=== PATIENT | male | born 1945 | race Hispanic/Latino ===

== ENCOUNTER 2016-10-25 07:22 | Inpatient (IN) | payer MEDICARE ==
[2016-10-25] MEDS ORDERED: D50W (25GM) IV ONE ×3 (07:30→07:46)
[2016-10-25 07:52] LABS: Basophils % (Auto) 0.2 % (0.0-1.8); Hematocrit 43.5 % (35.5-45.6); Hemoglobin 14.4 gm/dl (11.8-15.2); Mean Corpuscular HGB Conc 33 % (32-34); Mean Corpuscular Hemoglobin 30 pg (28-32); Mean Corpuscular Volume 90 fl (84-94); Platelet Count 186 K/mm3 (140-440); Red Blood Count 4.81 M/mm3 (3.65-5.03); Red Cell Distribution Width 13.9 % (13.2-15.2); White Blood Count 14.3 K/mm3 (4.5-11.0)
--- NOTE | 2016-10-25 08:04 | Emergency Department Report ---
ED Neuro Deficit HPI - General Chief Complaint: Neuro Symptoms/Deficit Stated Complaint: POSS STROKE Time Seen by Provider: 10/25/16 07:59 Source: patient, family Mode of arrival: Wheelchair Limitations: No Limitations - History of Present Illness Initial Comments: Pt is a 71-year-old male with history of hypertension, diabetes, hyperlipidemia who presents with dysarthric speech and weakness. Patient and reports he has been feeling very weak and was seen by [facility] yesterday and was discharged with Cipro for a UTI. Patient's reports that he still has weakness, slow to respond, his thought process is delayed, difficulty walking but then presented with dysarthric speech this morning at 5 AM last known normal is unknown. Patient does take glipizide daily, last meal was yesterday. Unknown if patient took medications this morning. - Related Data Home Medications: Home Medications Medication Instructions Recorded Confirmed Last Taken AtorvaSTATin [Lipitor] 10 mg PO DAILY 10/25/16 10/25/16 Unknown Ciprofloxacin HCl [Ciprofloxacin 500 mg PO Q12HR 10/25/16 10/25/16 Unknown TAB] Lisinopril [Zestril] 5 mg PO QDAY 10/25/16 10/25/16 Unknown Metformin HCl [Glucophage] 1,000 mg PO BID 10/25/16 10/25/16 Unknown glipiZIDE [Glucotrol] 10 mg PO BID 10/25/16 10/25/16 Unknown Allergies/Adverse Reactions: Allergies Allergy/AdvReac Type Severity Reaction Status Date / Time No Known Allergies Allergy Verified 10/25/16 07:54 ED Review of Systems ROS: Stated complaint: POSS STROKE Other details as noted in HPI Comment: All other systems reviewed and negative ED Past Medical Hx - Past Medical History Previous Medical History?: Yes Hx Hypertension: Yes Hx Diabetes: Yes Additional medical history: UTI, HLD - Surgical History Past Surgical History?: Yes Hx Coronary Stent: No - Social History Smoking Status: Never Smoker Substance Use Type: None - Medications Home Medications: Home Medications Medication Instructions Recorded Confirmed Last Taken Type AtorvaSTATin [Lipitor] 10 mg PO DAILY 10/25/16 10/25/16 Unknown History Ciprofloxacin HCl [Ciprofloxacin 500 mg PO Q12HR 10/25/16 10/25/16 Unknown History TAB] Lisinopril [Zestril] 5 mg PO QDAY 10/25/16 10/25/16 Unknown History Metformin HCl [Glucophage] 1,000 mg PO BID 10/25/16 10/25/16 Unknown History glipiZIDE [Glucotrol] 10 mg PO BID 10/25/16 10/25/16 Unknown History ED Neuro Physical Exam - General Limitations: No Limitations General appearance: alert, in no apparent distress Suspected Stroke: Yes (patient could have be having a posterior CVA or small stroke not detectable on CT) - Head Head exam: Present: atraumatic, normocephalic - Eye Eye exam: Present: normal appearance - ENT ENT exam: Present: mucous membranes moist - Neck Neck exam: Present: normal inspection - Respiratory Respiratory exam: Present: normal lung sounds bilaterally. Absent: respiratory distress - Cardiovascular Cardiovascular Exam: Present: regular rate, normal rhythm. Absent: systolic murmur, diastolic murmur, rubs, gallop - GI/Abdominal GI/Abdominal exam: Present: soft, normal bowel sounds - Rectal Rectal exam: Present: deferred - Extremities Exam Extremities exam: Present: normal inspection - Back Exam Back exam: Present: normal inspection - Neurological Exam Neurological exam: Present: alert, oriented X3, CN II-XII intact, abnormal gait , other (Dysarthric speech) - NIHSS Assessment Interval: 7-10 Days 1a. Level of Consciousness: alert 1b. LOC Questions: answers correctly 1c. LOC Commands: performs tasks correctly 2. Best Gaze: normal 3. Visual: no visual loss 4. Facial Palsy: normal symmetrical movement 5b. Motor Arm Right: no drift 5a. Motor Arm Left: no drift 6a. Motor Leg Left: no drift 6b. Motor Leg Right: no drift 7. Limb Ataxia: present 1 limb 8. Sensory: normal 9. Best Language: no aphasia 10. Dysarthria: mild/moderate dysarthria 11. Extinction/Inattention: no abnormality Total Score: 2 Stroke Severity: Minor Stroke - Psychiatric Psychiatric exam: Present: normal mood, flat affect - Skin Skin exam: Present: warm, dry, intact, normal color. Absent: rash ED Course Vital Signs 10/25/16 10/25/16 07:32 08:00 Pulse Rate 62 106 H Respiratory 18 18 Rate Blood Pressure 103/67 O2 Sat by Pulse 100 Oximetry - Lab Data Result diagrams: 10/25/16 07:45 10/25/16 07:45 Lab Results 10/25/16 10/25/1617 Range/Units 07:42 07:45 07:45 WBC 14.3 H (4.5-11.0) K/mm3 RBC 4.81 (3.65-5.03) M/mm3 Hgb 14.4 (11.8-15.2) gm/dl Hct 43.5 (35.5-45.6) % MCV 90 (84-94) fl MCH 30 (28-32) pg MCHC 33 (32-34) % RDW 13.9 (13.2-15.2) % Plt Count 186 (140-440) K/mm3 Lymph % (Auto) 9.8 L (13.4-35.0) % Bath % (Auto) 11.4 H (0.0-7.3) % Eos % (Auto) 0.0 (0.0-4.3) % Baso % (Auto) 0.2 (0.0-1.8) % Lymph # 1.4 (1.2-5.4) K/mm3 Bath # 1.6 H (0.0-0.8) K/mm3 Eos # 0.0 (0.0-0.4) K/mm3 Baso # 0.0 (0.0-0.1) K/mm3 Seg Neutrophils % 78.6 H (40.0-70.0) % Seg Neutrophils # 11.2 H (1.8-7.7) K/mm3 PT 13.3 (12.2-14.9) Sec. INR 1.02 (0.87-1.13) APTT 26.0 (24.2-36.6) Sec. Thrombin Time (15.1-19.6) Sec. Sodium (137-145) mmol/L Potassium (3.6-5.0) mmol/L Chloride (98-107) mmol/L Carbon Dioxide (22-30) mmol/L Anion Gap mmol/L BUN (9-20) mg/dL Creatinine (0.8-1.5) mg/dL Estimated GFR ml/min BUN/Creatinine Ratio % Glucose (75-100) mg/dL POC Glucose < 40 L (70-105) Calcium (8.4-10.2) mg/dL Troponin T (0.00-0.029) ng/mL 10/25/16 10/25/16 10/25/16 Range/Units 07:45 07:45 07:58 WBC (4.5-11.0) K/mm3 RBC (3.65-5.03) M/mm3 Hgb (11.8-15.2) gm/dl Hct (35.5-45.6) % MCV (84-94) fl MCH (28-32) pg MCHC (32-34) % RDW (13.2-15.2) % Plt Count (140-440) K/mm3 Lymph % (Auto) (13.4-35.0) % Bath % (Auto) (0.0-7.3) % Eos % (Auto) (0.0-4.3) % Baso % (Auto) (0.0-1.8) % Lymph # (1.2-5.4) K/mm3 Bath # (0.0-0.8) K/mm3 Eos # (0.0-0.4) K/mm3 Baso # (0.0-0.1) K/mm3 Seg Neutrophils % (40.0-70.0) % Seg Neutrophils # (1.8-7.7) K/mm3 PT (12.2-14.9) Sec. INR (0.87-1.13) APTT (24.2-36.6) Sec. Thrombin Time 16.0 (15.1-19.6) Sec. Sodium 135 L (137-145) mmol/L Potassium 3.7 (3.6-5.0) mmol/L Chloride 97.7 L (98-107) mmol/L Carbon Dioxide 22 (22-30) mmol/L Anion Gap 19 mmol/L BUN 30 H (9-20) mg/dL Creatinine 1.1 (0.8-1.5) mg/dL Estimated GFR > 60 ml/min BUN/Creatinine Ratio 27.27 % Glucose 46 L (75-100) mg/dL POC Glucose 158 H (70-105) Calcium 8.7 (8.4-10.2) mg/dL Troponin T < 0.010 (0.00-0.029) ng/mL - EKG Data -: EKG Interpreted by Ak ([id number] Afib at 101) EKG shows normal: axis (RAD), intervals (QTc:484ms), QRS complexes (no LVH), ST- T waves ((-)ST changes, TWI in III, avF) Rate: tachycardia (101 bpm) When compared to previous EKG there are: previous EKG unavailable - Radiology Data Radiology results: report reviewed 825: Case d/w radiology, no acute findings on CT head non con, will order CTA head and neck CTA head and neck: pending, hospitalist aware these were ordered and pending final reads Critical care attestation.: If time is entered above; I have spent that time in minutes in the direct care of this critically ill patient, excluding procedure time. ED Disposition Clinical Impression: Dysarthria, Weakness of both lower limbs, Gait abnormality Disposition: OP ADMITTED IP TO THIS HOSP Is pt being admited?: Yes Condition: Stable
[2016-10-25 08:05] LABS: Anion Gap 19 mmol/L; BUN/Creatinine Ratio 27.27; Blood Urea Nitrogen 30 mg/dL (9-20); Calcium 8.7 mg/dL (8.4-10.2); Carbon Dioxide 22 mmol/L (22-30); Chloride 97.7 mmol/L (98-107); Glucose 46 mg/dL (75-100); INR 1.02 (0.87-1.13); Potassium 3.7 mmol/L (3.6-5.0); Sodium 135 mmol/L (137-145)
--- NOTE | 2016-10-25 08:27 | Cat Scan Report ---
FINAL REPORT PROCEDURE: CT HEAD/BRAIN WO CON TECHNIQUE: Computerized tomography of the head was performed without contrast material. HISTORY: neuro deficits \T\lt; 6hrs or sx present upon awakening. Stroke alert COMPARISON: No prior studies are available for comparison. FINDINGS: Skull and scalp: Normal. Paranasal sinuses: Moderate fluid left mastoid. Hypoplastic right frontal sinus Ventricles and subarachnoid spaces: Normal. Suspect chronic arachnoid cyst left anterior inferior middle cranial fossa measuring 4.0 x 2.5 centimeters Cerebrum: No evidence of hemorrhage, acute infarction or mass . Cerebellum and brainstem: No evidence of hemorrhage, acute infarction or mass. Vasculature: Intracranial arterial atherosclerosis with moderately dense distal basilar artery axial image number 9. Moderately heavy calcified atherosclerosis of the distal internal carotid arteries bilaterally. Right MCA larger caliber than left MCA and mildly more dense or atherosclerotic. No classic hyperdense MCA sign seen at this time. Comments: Mild diffuse atrophy with parafalcine calcifications. Minimal central lacunar infarct disease. Periventricular microischemic change evident.. IMPRESSION: No evidence of acute ischemic change seen at this time by CT technique If symptoms and or concern persist consider MRI Report called by ASHOK Millard 8:[address] Abdalla 10/25/16 Final signed report completed within 8 minutes of receipt
[2016-10-25] MEDS ORDERED: NACL 0.9% 1000 ML 1,000 ML ONE (08:45)
[2016-10-25] MEDS ORDERED: NACL ONE (08:48)
[2016-10-25] MEDS ORDERED: NACL 0.9% 1000 ML 1,000 ML IV ONE (08:52)
--- NOTE | 2016-10-25 11:18 | History and Physical Report ---
History of Present Illness Date of examination: 10/25/16 Date of admission: 10/25/16 Chief complaint: Altered Mental status Slurred Speech Difficulty walking History of present illness: patient is 71-year-old male presented to the ER from home with complaint of altered mental status, and slurred speech. Patient's glucose was 46 upon arrival. Patient has a history of hypertension, diabetes, hyperlipidemia , . Patient also reported, he was diagnosed with UTI, by [facility] 3 days ago and being treated with Cipro by month. In Emergency Department, blood glucose was 46. He was given 1 amp of D50. His speech improved dramatically but his said he is not quite back to normal but close to normal. In addition and EKG showed atrial fibrillation, new onset with controlled ventricular rate 80s to 90s. He denies any previous history of atrial fibrillation. He is being admitted for further management . Past History Past Medical History: diabetes, hypertension, hyperlipidemia Past Surgical History: hernia repair, Other (circumcision and dilation 1 month ago) Social history: , lives with family, smoking (quit 2 years ago), full code. denies: alcohol abuse, IV drug use Family history: cancer, hypertension Medications and Allergies Allergies Allergy/AdvReac Type Severity Reaction Status Date / Time No Known Allergies Allergy Verified 10/25/16 07:54 Home Medications Medication Instructions Recorded Confirmed Last Taken Type AtorvaSTATin [Lipitor] 10 mg PO DAILY 10/25/16 10/25/16 Unknown History Ciprofloxacin HCl [Ciprofloxacin 500 mg PO Q12HR 10/25/16 10/25/16 Unknown History TAB] Lisinopril [Zestril] 5 mg PO QDAY 10/25/16 10/25/16 Unknown History Metformin HCl [Glucophage] 1,000 mg PO BID 10/25/16 10/25/16 Unknown History glipiZIDE [Glucotrol] 10 mg PO BID 10/25/16 10/25/16 Unknown History Review of Systems Constitutional: no weight loss, no weight gain, no fever, no chills Ears, nose, mouth and throat: deferred Cardiovascular: no chest pain, no syncope Respiratory: no cough, no congestion Gastrointestinal: diarrhea, no abdominal pain, no nausea, no vomiting, no constipation Genitourinary Male: no dysuria Rectal: pain Musculoskeletal: gait dysfunction, no neck stiffness, no neck pain Integumentary: deferred, dryness Neurological: weakness, no head injury, no confusion Psychiatric: no anxiety Exam - Constitutional Vitals: Temp Pulse Resp BP Pulse Ox 99 H 14 92/65 100 10/25/16 11:00 10/25/16 11:00 10/25/16 11:00 10/25/16 11:00 General appearance: Present: no acute distress, well-nourished - EENT Eyes: Present: PERRL ENT: hearing intact, clear oral mucosa - Neck Neck: Present: supple, normal ROM - Respiratory Respiratory effort: normal Respiratory: bilateral: CTA, negative: diminished, rales, rhonchi, wheezing - Cardiovascular Heart rate: 103 Rhythm: irregularly irregular Heart Sounds: Absent: rub, click - Extremities Extremities: No edema, normal temperature, normal color, Full ROM - Abdominal General gastrointestinal: Present: soft, non-tender, non-distended, normal bowel sounds Male genitourinary: Present: deferred - Rectal Rectal Exam: deferred - Integumentary Integumentary: Present: clear - Musculoskeletal Musculoskeletal: strength equal bilaterally - Psychiatric Psychiatric: appropriate mood/affect - Neurologic Neurologic: moves all extremities, other (AAO x 3) Results - Labs CBC & Chem 7: 10/26/16 05:20 10/26/16 05:20 Labs: Abnormal lab results 10/25/16 10/25/16 10/25/16 Range/Units 07:42 07:45 07:45 WBC 14.3 H (4.5-11.0) K/mm3 Lymph % (Auto) 9.8 L (13.4-35.0) % [place] % (Auto) 11.4 H (0.0-7.3) % Isabela # 1.6 H (0.0-0.8) K/mm3 Seg Neutrophils % 78.6 H (40.0-70.0) % Seg Neutrophils # 11.2 H (1.8-7.7) K/mm3 Sodium 135 L (137-145) mmol/L Chloride 97.7 L (98-107) mmol/L BUN 30 H (9-20) mg/dL Glucose 46 L (75-100) mg/dL POC Glucose < 40 L (70-105) 10/25/16 10/25/16 Range/Units 07:58 10:35 WBC (4.5-11.0) K/mm3 Lymph % (Auto) (13.4-35.0) % Isabel[place] % (Auto) (0.0-7.3) % [place] # (0.0-0.8) K/mm3 Seg Neutrophils % (40.0-70.0) % Seg Neutrophils # (1.8-7.7) K/mm3 Sodium (137-145) mmol/L Chloride (98-107) mmol/L BUN (9-20) mg/dL Glucose (75-100) mg/dL POC Glucose 158 H 61 L (70-105) - Imaging and Cardiology EKG: image reviewed (A. Fib noted) CT Scan - head: image reviewed (No acute ischemic noted) Assessment and Plan Hypoglycemia in patient on oral anti diabetics.Admit to telemetry. Was given 50 % dextrose in emergency department. Start D5 normal saline IV fluid at 75 mL an hour. Obtain hemoglobin A1c level. Accu-checks Slurred speech . This may be secondary to hypoglycemia. But we need to rule out stroke in the setting of new onset atrial fibrillation. CT head is negative. We'll obtain MRI of the brain and follow stroke order set. His speech has improved dramatically after 50% dextrose given however says his speech is still not back to normal. Acute metabolic encephalopathy due to hypoglycemia. New Onset Atrial Fibrillation, rate controlled - Start Lovenox 1mg/kg sc q12h, for anticoagulation ,for stroke prevention. Most recent BP is 92/65 and pulse 87, so not given beta blockers or Cardizem .Obtain echocardiogram. Consult cardiology Hyponatremia. iv fluids Leukocytosis. Will monitor. UTI. recently diagnosed. Continue antibiotic Hypertension. Will hold home meds on hold due to borderline low BP 92/65. Hyperlipidemia - continue home meds and lipid panel ordered DVT prophylaxis. Lovenox Full code status
[2016-10-25] MEDS ORDERED: ZOFRAN IV PRN (11:21)
[2016-10-25] MEDS ORDERED: MILK OF MAGNESIA PO PRN (11:21)
[2016-10-25] MEDS ORDERED: D50W (25GM) IV PRN (11:21)
[2016-10-25] MEDS ORDERED: TYLENOL PO PRN (11:21)
[2016-10-25] MEDS: NOVOLOG SUB-Q SCH ×3 (11:45→22:01)
[2016-10-25] MEDS ORDERED: D5NS 1,000 ML IV SCH (12:00)
[2016-10-25] MEDS ORDERED: SODIUM CHLORIDE FLUSH SYRINGE 10 ML IV PRN (12:00)
[2016-10-25] MEDS: PEPCID PO SCH ×2 (12:15→21:58)
[2016-10-25] MEDS: LEVAQUIN PO SCH (12:15)
[2016-10-25] MEDS: LOVENOX SUB-Q SCH (12:19)
--- NOTE | 2016-10-25 15:53 | Magnetic Resonance Report ---
FINAL REPORT PROCEDURE: MR BRAIN WO CON TECHNIQUE: Magnetic resonance imaging of the brain was performed without contrast material. HISTORY: stroke COMPARISON: CT Head today FINDINGS: Skull base and calvarium: Normal. Paranasal sinuses: The visualized paranasal sinuses are clear. Cerebellum: No evidence of hemorrhage, ischemia or mass. Brainstem: No evidence of hemorrhage, ischemia or mass. Cerebrum: No evidence of hemorrhage, ischemia or mass. Ventricles/subarachnoid space: Normal in ventricular size and morphology for the patient's age. Evidence for arachnoid cyst anterior left temporal lobe in the left middle cranial fossa fossa Pituitary gland and sella: Normal. Globes and orbits: Normal. Vasculature: Normal arterial and venous flow voids. Other: No bright T2 signal on diffusion-weighted sequence seen to suggest acute ischemic change. No diffusion restriction is identified.. Minimal T2 signal periventricular locations consistent with minimal microischemic change and scattered T2 foci deep white matter left frontal temporal brain consistent with chronic lacunar disease. IMPRESSION: No evidence of acute ischemic change seen at this time
--- NOTE | 2016-10-25 15:59 | Cat Scan Report ---
FINAL REPORT PROCEDURE: MR MRA/MRV HEAD WO CON TECHNIQUE: Axial 3-D [id number] MR angiography of the [place] and brain was performed. The source images were reconstructed in various views using maximum intensity projection. HISTORY: stroke COMPARISON: MRI today. CT head today FINDINGS: Vertebral arteries: Dominant left vertebral artery. Basilar artery: Normal. Internal carotid arteries: Normal. Anterior cerebral arteries: Dominant right anterior cerebral artery with only thready left anterior cerebral artery remnant, likely congenital Middle cerebral arteries: Normal. Posterior cerebral arteries: Dominant left posterior cerebral artery congenital. Branch occlusions: None. Vascular malformations: None. IMPRESSION: No definitive evidence of acute arterial obstruction or aneurysm seen No definable endo luminal thrombus
--- NOTE | 2016-10-25 16:00 | Cat Scan Report ---
FINAL REPORT PROCEDURE: MR MRA/MRV HEAD WO CON TECHNIQUE: Axial 3-D cefo-[id number] MR angiography of the [place] and brain was performed. The source images were reconstructed in various views using maximum intensity projection. HISTORY: stroke COMPARISON: MRI today. CT head today FINDINGS: Vertebral arteries: Dominant left vertebral artery. Basilar artery: Normal. Internal carotid arteries: Normal. Anterior cerebral arteries: Dominant right anterior cerebral artery with only thready left anterior cerebral artery remnant, likely congenital Middle cerebral arteries: Normal. Posterior cerebral arteries: Dominant left posterior cerebral artery congenital. Branch occlusions: None. Vascular malformations: None. IMPRESSION: No definitive evidence of acute arterial obstruction or aneurysm seen No definable endo luminal thrombus
[2016-10-25 22:36] LABS: Urine Drugs of Abuse Note Disclamer
[2016-10-26] MEDS ORDERED: MOTRIN PO PRN (00:07)
[2016-10-26] MEDS: LOVENOX SUB-Q SCH (00:13)
[2016-10-26 06:08] LABS: Basophils % (Auto) 0.7 % (0.0-1.8); Eosinophils % (Auto) 0.9 % (0.0-4.3); Hematocrit 37.9 % (35.5-45.6); Hemoglobin 12.6 gm/dl (11.8-15.2); Mean Corpuscular HGB Conc 33 % (32-34); Mean Corpuscular Hemoglobin 30 pg (28-32); Mean Corpuscular Volume 89 fl (84-94); Platelet Count 146 K/mm3 (140-440); Red Blood Count 4.24 M/mm3 (3.65-5.03); Red Cell Distribution Width 13.6 % (13.2-15.2); White Blood Count 6.8 K/mm3 (4.5-11.0)
[2016-10-26 06:24] LABS: Anion Gap 18 mmol/L; Blood Urea Nitrogen 23 mg/dL (9-20); Carbon Dioxide 18 mmol/L (22-30); Chloride 104.6 mmol/L (98-107); Cholesterol 92 mg/dL (50-199); Glucose 140 mg/dL (75-100); HDL Cholesterol 15 mg/dL (40-59); LDL Cholesterol,Direct 49 mg/dL (50-130); Potassium 3.5 mmol/L (3.6-5.0); Sodium 137 mmol/L (137-145); Triglycerides 141 mg/dL (2-149)
[2016-10-26] MEDS ORDERED: CARDIZEM PO SCH (09:00)
[2016-10-26] MEDS ORDERED: K-DUR PO ONE (09:00)
[2016-10-26] MEDS: NOVOLOG SUB-Q SCH ×4 (09:37→23:30)
[2016-10-26] MEDS: PEPCID PO SCH ×2 (09:38→22:39)
--- NOTE | 2016-10-26 09:51 | Consultation ---
History of Present Illness Consult date: 10/26/16 Consult reason: atrial fibrillation History of present illness: Pt seen, his is a pt in my clinic Impression Altered MS, likely related to hypoglycemia He appears normal at the time of my exam HTN DM Hyperlipidemia Plan ECG atrial fib, new onset, HR controlled, no CHF, no acute coronary syndrome I reviewed his CTA, MRI, MRA, carotid, no evidence of acute cranial pathology. Would start eliquis 5mg BID for nonvalvular afib Change to toprol XL 25 mg daily for HR control Would not restart glyburide at this time. He will follow-up with me with his who already has appt. His cardiac tests can be done in office. Past History Past Medical History: diabetes, hypertension, hyperlipidemia Past Surgical History: hernia repair, Other (circumcision and dilation 1 month ago) Social history: , lives with family, smoking (quit 2 years ago), full code. denies: alcohol abuse, IV drug use Family history: cancer, hypertension Medications and Allergies Allergies Allergy/AdvReac Type Severity Reaction Status Date / Time No Known Allergies Allergy Verified 10/25/16 07:54 Home Medications Medication Instructions Recorded Confirmed Last Taken Type AtorvaSTATin [Lipitor] 10 mg PO DAILY 10/25/16 10/25/16 Unknown History Ciprofloxacin HCl [Ciprofloxacin 500 mg PO Q12HR 10/25/16 10/25/16 Unknown History TAB] Lisinopril [Zestril] 5 mg PO QDAY 10/25/16 10/25/16 Unknown History Metformin HCl [Glucophage] 1,000 mg PO BID 10/25/16 10/25/16 Unknown History glipiZIDE [Glucotrol] 10 mg PO BID 10/25/16 10/25/16 Unknown History Active Meds: Active Medications Acetaminophen (Tylenol) 650 mg PO Q4H PRN PRN Reason: Pain MILD(1-3)/Fever >100.5/ESPARZA Last Admin: 10/25/16 21:57 Dose: 650 mg Apixaban (Eliquis) 5 mg PO Q12HR [facility] PRN Reason: Protocol Atorvastatin Calcium (Lipitor) 10 mg PO QHS [facility] Last Admin: 10/25/16 21:58 Dose: 10 mg Dextrose (D50w (25gm)) 50 ml IV PRN PRN PRN Reason: Hypoglycemia Famotidine (Pepcid) 20 mg PO BID [facility] Last Admin: 10/26/16 09:38 Dose: 20 mg Insulin Aspart (Novolog) 0 units SUB-Q ACHS [facility] PRN Reason: Protocol Last Admin: 10/26/16 09:37 Dose: Not Given Levofloxacin (Levaquin) 500 mg PO Q24H [facility] Last Admin: 10/25/16 12:15 Dose: 500 mg Magnesium Hydroxide (Milk Of Magnesia) 30 ml PO Q4H PRN PRN Reason: Constipation Metoprolol Succinate (Toprol Xl) 25 mg PO QDAY [facility] Ondansetron HCl (Zofran) 4 mg IV Q8H PRN PRN Reason: N/V unrelieved by Reglan Sodium Chloride (Sodium Chloride Flush Syringe 10 Ml) 10 ml IV PRN PRN PRN Reason: LINE FLUSH Review of Systems All systems: negative (Impression) Physical Examination Vital Signs Pulse Resp BP Pulse Ox 62 18 103/67 100 10/25/16 07:32 10/25/16 07:32 10/25/16 07:32 10/25/16 07:32 General appearance: no acute distress Neck: Positive: neck supple Cardiac: Positive: irregularly irregular, S1/S2. Negative: S3 Lungs: Positive: Normal Exam Neuro: Positive: Grossly Intact Abdomen: Positive: Unremarkable, Soft. Negative: Pulsations/Bruits Skin: Positive: Clear Results 10/26/16 05:20 10/26/16 05:20 Lipids 10/26/16 Range/Units 05:20 Triglycerides 141 (2-149) mg/dL Cholesterol 92 (50-199) mg/dL HDL Cholesterol 15 L (40-59) mg/dL Cholesterol/HDL Ratio 6.13 % CBC 10/26/16 Range/Units 05:20 WBC 6.8 (4.5-11.0) K/mm3 RBC 4.24 (3.65-5.03) M/mm3 Hgb 12.6 (11.8-15.2) gm/dl Hct 37.9 (35.5-45.6) % Plt Count 146 (140-440) K/mm3 Lymph # 1.8 (1.2-5.4) K/mm3 [place] # 0.8 (0.0-0.8) K/mm3 Eos # 0.1 (0.0-0.4) K/mm3 Baso # 0.1 (0.0-0.1) K/mm3 Comprehensive Metabolic Panel 10/26/16 Range/Units 05:20 Sodium 137 (137-145) mmol/L Potassium 3.5 L (3.6-5.0) mmol/L Chloride 104.6 (98-107) mmol/L Carbon Dioxide 18 L (22-30) mmol/L BUN 23 H (9-20) mg/dL Creatinine 1.0 (0.8-1.5) mg/dL Glucose 140 H (75-100) mg/dL Calcium 8.0 L (8.4-10.2) mg/dL EKG interpretations - EKG Supraventricular dysrhythmia: atrial fibrillation Chamber hypertrophy or enlargement: left ventricular hypertro
[2016-10-26] MEDS ORDERED: TOPROL XL PO SCH (10:00)
--- NOTE | 2016-10-26 10:00 | Progress Note ---
Assessment and Plan Assessment and plan: Hypoglycemia in patient on oral anti diabetics. Admited to telemetry. Was given 50% dextrose in emergency department, started D5NS. Accu-checks. Glucose is improved so discontinue iv fluid. Slurred speech secondary to hypoglycemia. Stroke ruled out with . Acute metabolic encephalopathy due to hypoglycemia. Atrial fibrillation with rapid ventricular rate. 100s to 120s. Metoprolol as ordered by cardiology. Started Lovenox 1mg/kg sc q12h, for anticoagulation , for stroke prevention yesterday. Switch to Eliquis as recommended by cardiology. Obtain echocardiogram. Diabetes mellitus type 2. Hold antidiabetics for now. Hyponatremia, resolved Leukocytosis resolved. UTI. recently diagnosed. Continue antibiotic Hypertension. BP stable. Hyperlipidemia - continue home meds and lipid panel ordered DVT prophylaxis. On Eliquis Full code status Likely discharge home tomorrow if rate controlled History Interval history: Feels better, speech back to normal, Hospitalist Physical - Constitutional Vitals: Temp Pulse Resp BP Pulse Ox 97.7 F 108 H 18 116/81 98 10/26/16 08:20 10/26/16 08:20 10/26/16 08:20 10/26/16 08:20 10/26/16 08:20 General appearance: Present: no acute distress, well-nourished - EENT Eyes: Present: PERRL ENT: hearing intact - Neck Neck: Present: supple - Respiratory Respiratory effort: normal Respiratory: bilateral: CTA, negative: diminished, rales, rhonchi, wheezing - Cardiovascular Rhythm: irregularly irregular - Extremities Extremities: no ischemia, No edema - Abdominal General gastrointestinal: soft, non-tender, non-distended, normal bowel sounds - Integumentary Integumentary: Present: clear, warm, dry - Psychiatric Psychiatric: appropriate mood/affect, intact judgment & insight - Neurologic Neurologic: moves all extremities, other (AAO x 3) Results - Labs CBC & Chem 7: 10/26/16 05:20 10/26/16 05:20 Labs: Laboratory Last Values WBC 6.8 K/mm3 (4.5-11.0) 10/26/16 05:20 RBC 4.24 M/mm3 (3.65-5.03) 10/26/16 05:20 Hgb 12.6 gm/dl (11.8-15.2) 10/26/16 05:20 Hct 37.9 % (35.5-45.6) 10/26/16 05:20 MCV 89 fl (84-94) 10/26/16 05:20 MCH 30 pg (28-32) 10/26/16 05:20 MCHC 33 % (32-34) 10/26/16 05:20 RDW 13.6 % (13.2-15.2) 10/26/16 05:20 Plt Count 146 K/mm3 (140-440) 10/26/16 05:20 Lymph % (Auto) 27.1 % (13.4-35.0) 10/26/16 05:20 [place] % (Auto) 12.0 % (0.0-7.3) H 10/26/16 05:20 Eos % (Auto) 0.9 % (0.0-4.3) 10/26/16 05:20 Baso % (Auto) 0.7 % (0.0-1.8) 10/26/16 05:20 Lymph # 1.8 K/mm3 (1.2-5.4) 10/26/16 05:20 [place] # 0.8 K/mm3 (0.0-0.8) 10/26/16 05:20 Eos # 0.1 K/mm3 (0.0-0.4) 10/26/16 05:20 Baso # 0.1 K/mm3 (0.0-0.1) 10/26/16 05:20 Seg Neutrophils % 59.3 % (40.0-70.0) 10/26/16 05:20 Seg Neutrophils # 4.0 K/mm3 (1.8-7.7) 10/26/16 05:20 PT 13.3 Sec. (12.2-14.9) 10/25/16 07:45 INR 1.02 (0.87-1.13) 10/25/16 07:45 APTT 26.0 Sec. (24.2-36.6) 10/25/16 07:45 Thrombin Time 16.0 Sec. (15.1-19.6) 10/25/16 07:45 Sodium 137 mmol/L (137-145) 10/26/16 05:20 Potassium 3.5 mmol/L (3.6-5.0) L 10/26/16 05:20 Chloride 104.6 mmol/L (98-107) 10/26/16 05:20 Carbon Dioxide 18 mmol/L (22-30) L 10/26/16 05:20 Anion Gap 18 mmol/L 10/26/16 05:20 BUN 23 mg/dL (9-20) H 10/26/16 05:20 Creatinine 1.0 mg/dL (0.8-1.5) 10/26/16 05:20 Estimated GFR > 60 ml/min 10/26/16 05:20 BUN/Creatinine Ratio 23.00 % 10/26/16 05:20 Glucose 140 mg/dL (75-100) H 10/26/16 05:20 POC Glucose 141 (70-105) H 10/26/16 08:44 Hemoglobin A1c 6.0 % (4-6) 10/25/16 07:45 Calcium 8.0 mg/dL (8.4-10.2) L 10/26/16 05:20 Troponin T < 0.010 ng/mL (0.00-0.029) 10/25/16 07:45 Triglycerides 141 mg/dL (2-149) 10/26/16 05:20 Cholesterol 92 mg/dL (50-199) 10/26/16 05:20 LDL Cholesterol Direct 49 mg/dL (50-130) L 10/26/16 05:20 HDL Cholesterol 15 mg/dL (40-59) L 10/26/16 05:20 Cholesterol/HDL Ratio 6.13 % 10/26/16 05:20 TSH 1.090 mlU/mL (0.270-4.200) 10/25/16 14:09 Free T4 1.24 ng/dL (0.76-1.46) 10/25/16 14:09 Urine Opiates Screen Presumptive negative 10/25/16 21:20 Urine Methadone Screen Presumptive negative 10/25/16 21:20 Ur Barbiturates Screen Presumptive negative 10/25/16 21:20 Ur Phencyclidine Scrn Presumptive negative 10/25/16 21:20 Ur Amphetamines Screen Presumptive negative 10/25/16 21:20 U Benzodiazepines Scrn Presumptive negative 10/25/16 21:20 Urine Cocaine Screen Presumptive negative 10/25/16 21:20 U Marijuana (THC) Screen Presumptive negative 10/25/16 21:20 Drugs of Abuse Note Disclamer 10/25/16 21:20
[2016-10-26] MEDS: ELIQUIS PO SCH ×2 (12:37→22:39)
[2016-10-26] MEDS: LEVAQUIN PO SCH (12:39)
--- NOTE | 2016-10-26 20:04 | Admit Criteria Form ---
Admission Criteria Documentation: TELEMETRY CARE Telemetry Admission Guidelines (Place 'X' for any and all applicable criteria): Admission to telemetry [A] may be indicated for ANY ONE of the following(1)(2)(3 )(4)(5): [X ]I. Cardiac disease, including ANY ONE of the following (9)(10)(11)(12)( 13): [ ]a) Postacute CO [ ]b) Low-risk patients with ST-segment elevation CO who have undergone successful percutaneous coronary intervention [ ]c) Unstable angina [ ]d) Suspected CO (until it is ruled out) [ ]e) Post cardiac surgery (first 48 to 72 hours unless complications occur) [X ]f) Acute arrhythmias (including significant tachycardia or bradycardia) [B] [ ]g) Firing of an implantable cardioverter defibrillator [C] [ ]h) Suspected pacemaker or implantable cardioverter defibrillator malfunction (10) [ ]i) New administration or adjustment of an antiarrhythmic drug [D ] [ ]j) Child admitted for acute congestive heart failure [ ]j) Long QT syndrome [ ]k) Advanced heart block (eg, second-degree Mobitz type II, third- degree heart block) [ ]l) Acute myocarditis or pericarditis [ ]m) Short-term (ambulatory or inpatient) monitoring after a cardiac procedure as indicated by ANY ONE of the following [E]: [ ]i) Electrophysiologic studies [ ]ii) Percutaneous coronary intervention with stent placement [ ]iii) Pacemaker placement with cardiac conduction defect [ ]iv) Implantable cardiac defibrillator placement [ ]II. Drug overdose or poisoning with substance that causes arrhythmias or QT prolongation (eg, phenothiazines, sympathomimetic agents, cyclic antidepressants, digitalis, antiarrhythmic drugs)(15) [ ]III. Short-term (ambulatory or inpatient) monitoring after therapeutic or diagnostic procedure requiring conscious sedation or anesthesia (eg, endoscopy, elective cardioversion) [ ]IV. Acute cerebrovascular even[F](18) [ ]V. Massive blood transfusion (eg, at least 10 units of packed red blood cells in 24 hours) [ ]. Variceal bleeding after endoscopy, sclerotherapy, or IV vasopressin [ ]VII. Uncorrected electrolyte abnormalities associated with an increased risk of dangerous arrhythmia [G]; examples include [ ]a) Hyperkalemia with attributable ECG changes [ ]b) Potassium greater than 6.5 mmol/L (mEq/L) in a patient without history of chronic renal disease [ ]c) Prolonged QT attributed to hypokalemia, hypomagnesemia, or hypocalcemia [ ]VIII.Unexplained syncope or other neurologic event suspected of being due to arrhythmia due to a finding that increases risk; examples include(19)(20)(21): [ ]a) High-risk ECG findings (eg, bifascicular block, bradycardia, abnormal QT interval, ventricular pre- excitation) [ ]b) History of previous syncope due to arrhythmia [ ]c) Abnormal ventricular function (eg, reduced ejection fraction ) [ ]d) Exertional or supine syncope [ ]e) Concerning syncope characteristics (eg, sudden loss of consciousness without prodrome) [ ]f) Family history of sudden [ ]g) Use of arrhythmogenic medication [ ]h) Suspected cardiac ischemia [ ]i) Known channelopathy (eg, long QT syndrome, Brugada syndrome, or catecholaminergic paroxysmal ventricular tachycardia) [ ]j) Known structural heart disease (eg, hypertrophic cardiomyopathy , severe valvular disease) [ ]k) Palpitations preceding syncope The original [employer] content created by [employer] has been revised. The portions of the content which have been revised are identified through the use of italic text or in bold, and [facility] has neither reviewed nor approved the modified material. All other unmodified content is copyright [employer]. Please see references footnoted in the original [employer] edition 2016 Admission Criteria Met: Yes
[2016-10-27] MEDS: NOVOLOG SUB-Q SCH ×4 (07:44→19:24)
[2016-10-27] MEDS ORDERED: TOPROL XL PO SCH (10:00)
--- NOTE | 2016-10-27 10:46 | Progress Note ---
Assessment and Plan Hypoglycemia Altered mental status likely related to hypoglycemia Persistent Atrial fibrillation initiated on eliquis on beta linh for rate control HTN DM Hyperlipidemia Plan: Rate control of his atrial fibrillation with beta linh. Continue oral anticoagulation with eliquis for prophylaxis. Further cardiac evaluation can be done as an outpatient. 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 Subjective Date of service: 10/27/16 Interval history: Patient is resting in bed comfortably. He has no palpitations. Objective Vital Signs Temp Pulse Pulse Pulse Resp Resp BP 10/27/16 08:00 97.3 F L 112 H 20 119/84 10/27/16 06:06 98.1 F 97 H 20 121/83 10/27/16 00:28 98.9 F 101 H 20 121/81 10/26/16 20:04 22 10/26/16 20:01 20 10/26/16 20:00 104 H 10/26/16 19:59 98.3 F 101 H 18 127/82 10/26/16 17:00 97.3 F L 98 H 18 117/91 10/26/16 13:38 97.7 F 106 H 18 118/82 10/26/16 13:00 109 H Pulse Ox 10/27/16 08:00 97 10/27/16 06:06 97 10/27/16 00:28 98 10/26/16 20:04 10/26/16 20:01 10/26/16 20:00 10/26/16 19:59 97 10/26/16 17:00 97 10/26/16 13:38 99 10/26/16 13:00 - Physical Examination General: No Apparent Distress HEENT: Positive: PERRL Neck: Positive: trachea midline Cardiac: Positive: irregularly irregular - Imaging and Cardiology EKG: image reviewed (A. Fib noted) Chamber hypertrophy or enlargement: left ventricular hypertro
[2016-10-27] MEDS: ELIQUIS PO SCH ×2 (11:43→21:48)
[2016-10-27] MEDS: PEPCID PO SCH ×2 (11:44→21:48)
[2016-10-27 12:30] LABS: Anion Gap 17 mmol/L; BUN/Creatinine Ratio 17.27; Blood Urea Nitrogen 19 mg/dL (9-20); Calcium 8.6 mg/dL (8.4-10.2); Carbon Dioxide 24 mmol/L (22-30); Chloride 101.5 mmol/L (98-107); Glucose 129 mg/dL (75-100); Sodium 138 mmol/L (137-145)
[2016-10-27 13:25] LABS: Potassium 4.9 mmol/L (3.6-5.0)
--- NOTE | 2016-10-27 13:36 | Progress Note ---
Assessment and Plan Assessment and plan: Hypoglycemia in patient on oral anti diabetics. Admited to telemetry. Was given 50% dextrose in emergency department, started D5NS, now discontinued. Accu- checks. A1C 6.0 so will not resume Anti-diabetics on discharge Slurred speech secondary to hypoglycemia.Resolved. Stroke ruled out with MRI. Acute metabolic encephalopathy due to hypoglycemia. Atrial fibrillation with rapid ventricular rate. Rate still uncontrolled. Metoprolol dose increased to 50mg po bid. Cont Eliquis as recommended by cardiology. Ob Diabetes mellitus type 2. Antidiabetics on hold for now. Hyponatremia, resolved Leukocytosis resolved. UTI. recently diagnosed. Continue antibiotic Hypertension. BP stable. Hyperlipidemia - continue home meds and lipid panel ordered DVT prophylaxis. On Eliquis Full code status Likely discharge home tomorrow if rate controlled History Interval history: Feels better, speech back to normal, heart rate still high Hospitalist Physical - Constitutional Vitals: Temp Pulse Resp BP Pulse Ox 97.3 F L 112 H 20 119/84 97 10/27/16 08:00 10/27/16 08:00 10/27/16 08:00 10/27/16 08:00 10/27/16 08:00 General appearance: Present: no acute distress, well-nourished - EENT Eyes: Present: PERRL ENT: hearing intact, clear oral mucosa - Neck Neck: Present: supple, normal ROM - Respiratory Respiratory effort: normal Respiratory: bilateral: CTA, negative: diminished, rales, rhonchi, wheezing - Cardiovascular Rhythm: irregularly irregular (rapid) - Extremities Extremities: no ischemia, No edema, normal temperature, normal color - Abdominal General gastrointestinal: soft, non-tender, non-distended, normal bowel sounds - Integumentary Integumentary: Present: clear, warm, dry - Psychiatric Psychiatric: appropriate mood/affect, intact judgment & insight - Neurologic Neurologic: moves all extremities, other (AAO x 3) Results - Labs CBC & Chem 7: 10/26/16 05:20 10/27/16 06:58 Labs: Laboratory Last Values WBC 6.8 K/mm3 (4.5-11.0) 10/26/16 05:20 RBC 4.24 M/mm3 (3.65-5.03) 10/26/16 05:20 Hgb 12.6 gm/dl (11.8-15.2) 10/26/16 05:20 Hct 37.9 % (35.5-45.6) 10/26/16 05:20 MCV 89 fl (84-94) 10/26/16 05:20 MCH 30 pg (28-32) 10/26/16 05:20 MCHC 33 % (32-34) 10/26/16 05:20 RDW 13.6 % (13.2-15.2) 10/26/16 05:20 Plt Count 146 K/mm3 (140-440) 10/26/16 05:20 Lymph % (Auto) 27.1 % (13.4-35.0) 10/26/16 05:20 [place] % (Auto) 12.0 % (0.0-7.3) H 10/26/16 05:20 Eos % (Auto) 0.9 % (0.0-4.3) 10/26/16 05:20 Baso % (Auto) 0.7 % (0.0-1.8) 10/26/16 05:20 Lymph # 1.8 K/mm3 (1.2-5.4) 10/26/16 05:20 [place] # 0.8 K/mm3 (0.0-0.8) 10/26/16 05:20 Eos # 0.1 K/mm3 (0.0-0.4) 10/26/16 05:20 Baso # 0.1 K/mm3 (0.0-0.1) 10/26/16 05:20 Seg Neutrophils % 59.3 % (40.0-70.0) 10/26/16 05:20 Seg Neutrophils # 4.0 K/mm3 (1.8-7.7) 10/26/16 05:20 PT 13.3 Sec. (12.2-14.9) 10/25/16 07:45 INR 1.02 (0.87-1.13) 10/25/16 07:45 APTT 26.0 Sec. (24.2-36.6) 10/25/16 07:45 Thrombin Time 16.0 Sec. (15.1-19.6) 10/25/16 07:45 Sodium 138 mmol/L (137-145) 10/27/16 06:58 Potassium 4.9 mmol/L (3.6-5.0) D 10/27/16 06:58 Chloride 101.5 mmol/L (98-107) 10/27/16 06:58 Carbon Dioxide 24 mmol/L (22-30) 10/27/16 06:58 Anion Gap 17 mmol/L 10/27/16 06:58 BUN 19 mg/dL (9-20) 10/27/16 06:58 Creatinine 1.1 mg/dL (0.8-1.5) 10/27/16 06:58 Estimated GFR > 60 ml/min 10/27/16 06:58 BUN/Creatinine Ratio 17.27 % 10/27/16 06:58 Glucose 129 mg/dL (75-100) H 10/27/16 06:58 POC Glucose 156 (70-105) H 10/27/16 12:21 Hemoglobin A1c 6.0 % (4-6) 10/25/16 07:45 Calcium 8.6 mg/dL (8.4-10.2) 10/27/16 06:58 Troponin T < 0.010 ng/mL (0.00-0.029) 10/25/16 07:45 Triglycerides 141 mg/dL (2-149) 10/26/16 05:20 Cholesterol 92 mg/dL (50-199) 10/26/16 05:20 LDL Cholesterol Direct 49 mg/dL (50-130) L 10/26/16 05:20 HDL Cholesterol 15 mg/dL (40-59) L 10/26/16 05:20 Cholesterol/HDL Ratio 6.13 % 10/26/16 05:20 TSH 1.090 mlU/mL (0.270-4.200) 10/25/16 14:09 Free T4 1.24 ng/dL (0.76-1.46) 10/25/16 14:09 Urine Opiates Screen Presumptive negative 10/25/16 21:20 Urine Methadone Screen Presumptive negative 10/25/16 21:20 Ur Barbiturates Screen Presumptive negative 10/25/16 21:20 Ur Phencyclidine Scrn Presumptive negative 10/25/16 21:20 Ur Amphetamines Screen Presumptive negative 10/25/16 21:20 U Benzodiazepines Scrn Presumptive negative 10/25/16 21:20 Urine Cocaine Screen Presumptive negative 10/25/16 21:20 U Marijuana (THC) Screen Presumptive negative 10/25/16 21:20 Drugs of Abuse Note Disclamer 10/25/16 21:20
[2016-10-27] MEDS: LEVAQUIN PO SCH (19:23)
[2016-10-27] MEDS: TOPROL XL PO SCH (21:47)
[2016-10-28] MEDS: NOVOLOG SUB-Q SCH (00:12)
[2016-10-28 09:14] VITALS: BP 108/78
--- NOTE | 2016-10-28 10:13 | Progress Note ---
Assessment and Plan Hypoglycemia Altered mental status likely related to hypoglycemia Persistent Atrial fibrillation initiated on eliquis on beta linh for rate control HTN DM Hyperlipidemia Plan: Rate control of his atrial fibrillation with beta linh therapy. Continue oral anticoagulation with eliquis for prophylaxis. Further cardiac evaluation can be done as an outpatient. 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 Subjective Date of service: 10/28/16 Interval history: Patient has no complaints. Wants to go home. Afib with well controlled ventricular rate on telemetry. Objective Vital Signs Temp Pulse Pulse Pulse Resp BP BP 10/28/16 08:15 97.4 F L 98 H 18 108/78 10/28/16 05:09 98.0 F 88 88 H 152/70 10/28/16 01:24 97.4 F L 100 H 20 101/67 10/28/16 00:00 100 H 10/27/16 21:37 98.0 F 87 20 118/87 10/27/16 17:00 98.7 F 92 H 16 125/85 10/27/16 16:00 126 H 10/27/16 12:00 97.9 F 81 20 134/79 Pulse Ox 10/28/16 08:15 98 10/28/16 05:09 97 10/28/16 01:24 97 10/28/16 00:00 10/27/16 21:37 97 10/27/16 17:00 98 10/27/16 16:00 10/27/16 12:00 99 - Physical Examination General: No Apparent Distress HEENT: Positive: PERRL Neck: Positive: trachea midline Cardiac: Positive: irregularly irregular Lungs: Positive: Decreased Breath Sounds Neuro: Positive: Grossly Intact - Labs and Meds Comprehensive Metabolic Panel 10/27/16 Range/Units 06:58 Sodium 138 (137-145) mmol/L Potassium 4.9 D (3.6-5.0) mmol/L Chloride 101.5 (98-107) mmol/L Carbon Dioxide 24 (22-30) mmol/L BUN 19 (9-20) mg/dL Creatinine 1.1 (0.8-1.5) mg/dL Glucose 129 H (75-100) mg/dL Calcium 8.6 (8.4-10.2) mg/dL - Imaging and Cardiology EKG: image reviewed (A. Fib noted) Chamber hypertrophy or enlargement: left ventricular hypertro
--- NOTE | 2016-10-28 10:19 | Discharge Summary ---
Providers - Providers Date of Admission: 10/25/16 11:19 Date of discharge: 10/28/16 Attending physician: KATARINA KAPADIA 10/25/16 11:29 Occupational Therapy Evaluate and Treat [CONS] Routine Comment: Reason For Exam: Neuro deficits Physical Therapy Evaluation and Treat [CONS] Routine Comment: Reason For Exam: Neuro deficits 10/25/16 12:29 Consult to Physician [CONS] Routine Consulting Provider: QUINCY LEMOS Reason For Exam: new onset afib Place consult to:: CARDIOLOGY Notified:: Y If yes, spoke with:: A/S PATIENCE Time called:: 12:35 10/25/16 13:27 Speech Therapy Evaluation and Treat [CONS] Routine Reason For Exam: slurred speech Primary care physician: [employer] Hospitalization Condition: Stable Disposition: STILL A PATIENT - Discharge Diagnoses (1) Atrial fibrillation with RVR Status: Acute (2) New onset a-fib Status: Acute Exam - Constitutional Vitals: Temp Pulse Resp BP Pulse Ox 97.4 F L 98 H 18 108/78 98 10/28/16 08:15 10/28/16 08:15 10/28/16 08:15 10/28/16 08:15 10/28/16 08:15 Plan Activity: advance as tolerated Diet: low fat, low cholesterol, low salt Additional Instructions: 1.Follow up with PCP in 1 week. 2.Follow up with Dr. Cannon as scheduled. 3.Discontinue Glipizide and Metformin for now. PCP to re- evaluate blood glucose trends and may resume antidiabetics if needed. Follow up with: PRIMARY CARE, [Primary Care Provider] - 3-5 Days Prescriptions: Apixaban [Eliquis] 5 mg PO Q12HR #60 tablet Famotidine [Pepcid] 20 mg PO BID #60 tablet Metoprolol Xl [Metoprolol SUCCINATE ER TAB] 50 mg PO BID #60 tablet
[2016-10-28] MEDS: PEPCID PO SCH (10:23)
[2016-10-28] MEDS: ELIQUIS PO SCH (10:23)
[2016-10-28] MEDS: TOPROL XL PO SCH (10:23)
--- NOTE | 2016-10-30 08:27 | Vascular Lab Report ---
CAROTID DUPLEX STUDY: RIGHT PSVEDV CCA PROX: 6114 CCA DIST: 6223 ICA PROX: 5716 ICA MID: 6827 ICA DIST:[id number] ECA: 5914 VERT: 55 15 LEFT PSVEDV CCA PROX: 4710 CCA DIST: 4512 ICA PROX: 4016 ICA MID: 7028 ICA DIST: 6019 ECA: 5310 VERT: 52 20 REASON FOR EXAM: Stroke. COMMENTS ON THE RIGHT: Doppler frequency analysis is consistent with 16 to 49 percent diameter reduction of the internal carotid artery. Minimal amount of plaque is seen. The common carotid artery is patent. The external carotid artery is patent. The vertebral artery has antegrade flow. COMMENTS ON THE LEFT: Doppler frequency analysis is consistent with 16 to 49 percent diameter reduction of the internal carotid artery. Minimal amount of plaque is seen. The common carotid artery is patent. The external carotid artery is patent. The vertebral artery has antegrade flow. IMPRESSION: Less than 50% diameter reduction in the internal carotid arteries bilaterally. Consider repeat carotid artery duplex in 12 months.
== END 2016-10-28 14:05 | disposition home or self-care (01) | DRG 637 ==
LOC: ED 07:22 → 4A 11:19
PROVIDERS: ADMIT Internal Medicine; ATTEND Internal Medicine
DX: E11.649 Type 2 diabetes mellitus with hypoglycemia without coma (principal); G93.41 Metabolic encephalopathy; E87.1 Hypo-osmolality and hyponatremia; R47.1 Dysarthria and anarthria; R26.9 Unspecified abnormalities of gait and mobility; I48.91 Unspecified atrial fibrillation; I10 Essential (primary) hypertension; D72.829 Elevated white blood cell count, unspecified; E78.5 Hyperlipidemia, unspecified; Z87.440 Personal history of urinary (tract) infections; Z80.9 Family history of malignant neoplasm, unspecified; Z82.49 Family history of ischemic heart disease and other diseases of the circulatory system; Z79.84 Long term (current) use of oral hypoglycemic drugs
CPT/HCPCS: 36415; 70450; 70496; 70498; 70544; 70551; 80048; 80061; 80307; 82962; 83036; 84439; 84443; 84484; 85025; 85610; 85670; 85730; 93005; 93010; 93880; 96361; 96374; A9270-GY; G8978-GP; G8979-GP; G8987-GO; G8988-GO; G8989-GO; G8999-GN; G9158-GN; G9186-GN; J1650; J1815; J7030; J7042; Q9967